=== PATIENT | male | born 1975 | race Two or more races ===

== ENCOUNTER 2016-07-16 10:54 | Day surgery (SDC) | payer OTHER ==
[~2016-07-16 10:54] MED LIST: Buffered Lidocaine 1% SYR 3ML* 3 ML/SYR SYRINGE INTRADERM ONE; Sodium Citrate/Citric Acid* 15 ML UDC ONE; Sodium Citrate/Citric Acid* 15 ML UDC PO ONE
[2016-07-16] MEDS ORDERED: Oxymetazoline 0.05% NASAL SPR* 15 ML BTL ONE ×2 (13:20→13:26)
[2016-07-16] MEDS ORDERED: Bacitracin OINTMENT* 1 TUBE ONE (13:27)
[2016-07-16] MEDS ORDERED: Lidocaine 4% TOPICAL* 50 ML TOP.SOLN ONE (13:27)
[2016-07-16] MEDS ORDERED: Lidocain 1% EPI 1:100,000 * 30 ML MDV ONE (13:27)
[2016-07-16] MEDS ORDERED: fentaNYL* 50 MCG/ML 2 ML VIAL (100 MCG VIAL) ONE ×3 (13:46→16:26)
[2016-07-16] MEDS ORDERED: Dexamethasone IV* 4 MG/ML 1 ML (4 MG) ONE (14:03)
[2016-07-16] MEDS ORDERED: Lidocaine 2% PF * 5 ML VIAL ONE (14:03)
[2016-07-16] MEDS ORDERED: Succinylcholine* 20 MG/ML 10 ML VIAL ONE (14:03)
[2016-07-16] MEDS ORDERED: Propofol* 10 MG/ML 20 ML BTL IV PUSH ONE (14:03)
[2016-07-16] MEDS ORDERED: Ondansetron INJ* 2 MG/ML VIAL ONE (15:01)
[2016-07-16] MEDS ORDERED: DiMENhydriNATE IV* 50 MG/ML VIAL IV PUSH PRN (15:35)
[2016-07-16] MEDS ORDERED: Triamcinolone Acetonide* 40 MG/ML 1 ML VIAL ONE (15:47)
[2016-07-16] MEDS ORDERED: Levalbuterol HFA INHALER* 1 PUFF MDI ONE (15:57)
[2016-07-16] MEDS: fentaNYL* 50 MCG/ML 2 ML VIAL (100 MCG VIAL) IV PRN ×2 (16:29→16:38)
[2016-07-16] MEDS ORDERED: Labetalol IV* 5 MG/ML 20 ML VIAL ONE (16:56)
[2016-07-16 17:40] VITALS: BP 138/94
--- NOTE | 2016-07-17 12:59 | OP ---
DATE OF OPERATION: 07/16/16 [facility] DATE OF : 75 SURGEON: Roderick Penny MD. OUTSIDE PL[employer] CABLE ENGINEER: None. ANESTHESIOLOGIST: Orlando Kwong DO ANESTHESIA: General. PRE-OP DIAGNOSIS: Sinonasal polyposis and chronic pansinusitis. POST-OP DIAGNOSIS: Sinonasal polyposis and chronic pansinusitis. OPERATIVE PROCEDURE: Bilateral endoscopic sinus surgery, specifically bilateral frontal sinusotomies utilizing the balloon device, bilateral anterior and posterior ethmoidectomy, bilateral maxillary antrostomy. ESTIMATED BLOOD LOSS: Approximately 100 cc. SPECIMEN: Right and left sinus contents to Pathology. COMPLICATIONS: None. FINDINGS: Diffuse sinonasal polyposis with partial obstruction of the nasal cavities bilaterally. INDICATION: This is a 41-year-old male who has had longstanding allergies and nasal airway obstruction. He has been previously diagnosed with sinonasal polyposis, but has never had surgery. Due to worsening of his nasal airway obstruction and difficulty controlling his symptoms with medication, the decision was made to proceed with bilateral endoscopic sinus surgery. DESCRIPTION OF PROCEDURE: On 07/16/16, the patient was brought to the operating room. He had been pre-operatively decongested with Afrin in the holding area. General anesthesia was induced and an oral endotracheal tube was placed. The [employer] navigation system was set up initially with a fiducial marker on the forehead. It was registered and found to be accurate. The patient was then draped and a time-out was performed. The nasal cavities were examined with the 0-degree endoscope bilaterally. There was polyposis essentially filling both nasal cavities with limited nasal airway inferiorly. Middle meatus was filled with polyps bilaterally. There was also some mucopurulent discharge present bilaterally. The middle turbinates were injected with 1% lidocaine with epinephrine as were the lateral nasal liu and the roots of the middle turbinates and both nasal cavities were packed with pledgets soaked in 4% lidocaine and Afrin. Once adequate time had been allotted for vasoconstriction, the procedure was begun on the left side. The middle turbinate was medialized. Prior to disruption of any tissue planes, the [employer] balloon device was brought into the field. A guidewire was introduced just posterior to the uncinate, and after a few attempts, it was passed into the left frontal sinus with good bright illumination of the left frontal sinus. The balloon catheter was advanced over the guidewire. The balloon was then deployed twice to fully open the frontal recess. The balloon was then partially withdrawn and the sinus was irrigated with approximately 60 cc of saline. There was fixed copious mucopus that was irrigated out of the frontal sinus. Following irrigation, attention was turned to the right side. On this side, the guidewire was again introduced just posterior to the uncinate process and after a few attempts, the right frontal sinus was transilluminated indicating the good positioning of the guidewire. The balloon was then advanced over the guidewire and 2 inflations were performed to fully open the frontal outflow tract. The device was then removed and initial attempt to reintroduce the device with the guidewire was difficult and so irrigation of the sinus was deferred until later in the case. Attention was turned back to the left nasal cavity. The microdebrider attached to the [employer] navigation system was used to take down the uncinate, remove polyps from the middle meatus. The maxillary sinus was opened widely with the microdebrider. The ethmoid bulla was taken down with the microdebrider and a J-curette was used in combination with up angle, through-cutting instrumentation to remove the ethmoid air cells. From time-to- time, the navigation system, which was enabled on both the suction and the microdebrider were used to confirm position. The microdebrider was also used to assist with removal of polypoid disease from the ethmoid air cells. Multiple times during the procedure, time was taken to pack off the cavity so that bleeding could be contained, and ultimately the anterior and posterior ethmoidectomy was able to be accomplished on the left along with maxillary antrostomy and a frontal sinusotomy. Attention was then turned to the right nasal cavity. Again, the middle turbinate was medialized. The uncinate process was taken down and polypoid tissue along with the ethmoid bulla were taken down with the microdebrider. The medial wall of the maxillary sinus was identified. A curved suction was placed through the natural ostium to identify and then a microdebrider was used to enlarge the natural ostium. A combination of a J-curette as well as angled, through- cutting instrumentation was used to take down ethmoid air cells from posterior to anterior. The microdebrider was also used to remove bony partitions for the ethmoidectomy. Once the ethmoidectomy was complete, the [employer] balloon system was brought back into the field and the right frontal sinus was ultimately able to be recannulated with the guidewire. This allowed for advancement of the balloon and copious irrigation of the sinus with recovery of thick mucopus from the frontal sinus. Some polypoid tissue was removed as well from the sphenoethmoidal recess and the face of the sphenoid sinus, although the ostium did appear patent. The procedure was then brought to a conclusion. Stammberger Sinu-Foam was mixed and a small amount of Kenalog was mixed into it. This was used to line the ethmoid beds and maxillary sinus. Small Griffin packs were placed into the middle meatus bilaterally and secured to the cheeks with Mastisol and Steri-Strips. The patient was then returned to the care of the anesthesiologist, extubated without difficulty and delivered to the PACU in stable condition. [id number] #: [id number] REX
== END 2016-07-16 17:51 | disposition home or self-care (01) ==
LOC: OR 10:54
PROVIDERS: ATTEND Otolaryngology
DX: J32.4 Chronic pansinusitis (principal); J33.8 Other polyp of sinus; J45.909 Unspecified asthma, uncomplicated; I10 Essential (primary) hypertension
CPT/HCPCS: 88304; A9270-GY; J0330; J1100; J2405; J2704; J3010; J3301